=== PATIENT | male | born 1980 | race Caucasian/White ===

== ENCOUNTER 2017-12-01 16:54 | Observation (INO) | payer BC ==
[2017-12-01] MEDS ORDERED: Sodium Chloride 0.9% 10 ML Syringe FLUSH PRN ×2 (18:15→20:13)
[2017-12-01] MEDS ORDERED: Metoclopramide 10 MG/2 ML SDV IVPUSH ONE (18:15)
--- NOTE | 2017-12-01 18:18 | EDM.PDOC ---
ED HPI GENERAL MEDICAL PROBLEM - General Chief Complaint: Gastrointestinal Problem Stated Complaint: ABDOMINAL PAIN LOWER R SIDE Time Seen by Provider: 12/01/17 18:07 Source of Information: Reports: Patient History Limitations: Reports: No Limitations - History of Present Illness INITIAL COMMENTS - FREE TEXT/NARRATIVE: 37-year-old male presents for evaluation and treatment of right lower quadrant abdominal pain. Patient reports that he has not been feeling well for the last week. He states that for the last day his symptoms have significantly worsened. States the pain over the course last week has been intermittent. Today at the pain has been constant. Reports pain in the right lower quadrant. Reports associated symptoms of nausea. No fevers or vomiting. He also states that he had 2 bloody stools on Monday. He had a black tarry stool on Monday. Today he had about 3 bowel movements which were looser but no melena or hematochezia present. He denies any rectal pain. Denies any dysuria or hematuria. No previous surgeries to his abdomen. No recent travel. No recent antibiotic use. Duration: Week(s): (1) Location: Reports: Abdomen (RLQ) Right Abdomen Pain Score (Numeric/FACES): 5 - Related Data Allergies Allergy/AdvReac Type Severity Reaction Status Date / Time No Known Allergies Allergy Verified 12/02/17 02:45 Home Meds: Home Meds . [No Known Home Meds] 12/01/17 [History] Past Medical History Musculoskeletal History: Reports: Fracture Other Musculoskeletal History: left hand, right elbow left knee - Past Surgical History HEENT Surgical History: Reports: Naso-Sinus Surgery, Tonsillectomy Social & Family History - Family History Family Medical History: Noncontributory - Tobacco Use Smoking Status *Q: Never Smoker - Caffeine Use Caffeine Use: Reports: Soda - Recreational Drug Use Recreational Drug Use: No ED ROS GENERAL - Review of Systems Review Of Systems: See Below Constitutional: Reports: Decreased Appetite. Denies: Fever GI/Abdominal: Reports: Abdominal Pain (RLQ), Hematochezia, Melena, Nausea. Denies: Vomiting : Reports: No Symptoms ED EXAM, GI/ABD - Physical Exam Exam: See Below Exam Limited By: No Limitations General Appearance: Alert, WD/WN, No Apparent Distress, Obese Respiratory/Chest: No Respiratory Distress, Lungs Clear, Normal Breath Sounds Cardiovascular: Normal Peripheral Pulses, Regular Rate, Rhythm, No Murmur GI/Abdominal Exam: Normal Bowel Sounds, Soft, Guarding, Rebound, Tender (RLQ), Other (pain at [place]urn[place] point: + obturator sign, minimal discomfort with heel percussion) Neurological: Alert, Oriented, Normal Cognition Psychiatric: Normal Affect, Normal Mood Skin Exam: Warm, Dry, Normal Color Course - Vital Signs Last Recorded V/S: Last Vital Signs Temp 36.6 C 12/02/17 08:17 Pulse 78 12/02/17 10:43 Resp 20 12/02/17 08:17 BP 132/76 12/02/17 08:31 Pulse Ox 93 L 12/02/17 10:43 - Orders/Labs/Meds Orders: Active Orders 24 hr Category Date Time Status Communication Order [RC] ROUTINE Care 12/01/17 23:16 Active Cooling Warming Measures [RC] ASDIRECTED Care 12/01/17 23:16 Active Notify Provider [RC] ASDIRECTED Care 12/01/17 23:16 Active Oxygen Therapy [RC] ASDIRECTED Care 12/01/17 23:16 Active Pulse Oximetry [RC] ASDIRECTED Care 12/01/17 23:16 Active Labs: Laboratory Tests 12/01/17 12/01/17 12/01/17 Range/Units 18:30 18:30 18:34 WBC 9.92 H (4.23-9.07) K/mm3 RBC 5.96 (4.63-6.08) M/mm3 Hgb 17.5 (13.7-17.5) gm/L Hct 50.6 (40.1-51.0) % MCV 84.9 (79.0-92.2) fl MCH 29.4 (25.7-32.2) pg MCHC 34.6 (32.2-35.5) g/dl RDW Std Deviation 41.5 (35.1-43.9) fL Plt Count 254 (163-337) K/mm3 MPV 8.7 L (9.4-12.3) fl Neutrophils % (Manual) 71 H (40-60) % Band Neutrophils % 0 (0-10) % Lymphocytes % (Manual) 25 (20-40) % Atypical Lymphs % 0 % Monocytes % (Manual) 0 L (2-10) % Eosinophils % (Manual) 3 (0.8-7.0) % Basophils % (Manual) 1 (0.2-1.2) Platelet Estimate Adequate Plt Morphology Comment Normal RBC Morph Comment Normal Sodium 137 (136-145) mEq/L Potassium 4.0 (3.5-5.1) mEq/L Chloride 98 (98-107) mEq/L Carbon Dioxide 30 (21-32) mEq/L Anion Gap 13.0 (5-15) BUN 12 (7-18) mg/dL Creatinine 1.1 (0.7-1.3) mg/dL Est Cr Clr Drug Dosing 112.03 mL/min Estimated GFR (MDRD) > 60 (>60) mL/min BUN/Creatinine Ratio 10.9 L (14-18) Glucose 95 (74-106) mg/dL Calcium 9.6 (8.5-10.1) mg/dL Total Bilirubin 0.7 (0.2-1.0) mg/dL AST 29 (15-37) U/L ALT 73 H (16-63) U/L Alkaline Phosphatase 76 (46-116) U/L C-Reactive Protein 2.0 H* (<1.0) mg/dL Total Protein 7.9 (6.4-8.2) g/dl Albumin 4.2 (3.4-5.0) g/dl Globulin 3.7 gm/dL Albumin/Globulin Ratio 1.1 (1-2) Urine Color Light yellow (Yellow) Urine Appearance Clear (Clear) Urine pH 7.0 (5.0-8.0) Ur Specific [place] 1.015 (1.005-1.030) Urine Protein Negative (Negative) Urine Glucose (UA) Negative (Negative) Urine Ketones Negative (Negative) Urine Occult Blood Negative (Negative) Urine Nitrite Negative (Negative) Urine Bilirubin Negative (Negative) Urine Urobilinogen 0.2 (0.2-1.0) Ur Leukocyte Esterase Negative (Negative) Urine RBC Not seen (0-5) /hpf Urine WBC 0-5 (0-5) /hpf Ur Epithelial Cells 0-5 (0-5) /hpf Urine Bacteria Not seen (FEW) /hpf Urine Mucus Not seen (FEW) /hpf Meds: Medications Discontinued Medications Generic Name Dose Route Start Last Admin Trade Name Freq PRN Reason Stop Dose Admin Hydrocodone Bitart/Acetaminophen 1 tab 12/02/17 00:13 03/03/18 05:13 Schuyler 325-5 Mg PO 1 tab Q6H PRN Administration Pain (severe 7-10) Bupivacaine HCl Confirm 12/01/17 21:08 Marcaine 0.5% Administered 12/01/17 21:09 Dose 30 ml .ROUTE .STK-MED ONE Diatrizoate Meglum/Diatrizoate Sod 120 ml 12/01/17 20:13 12/01/17 20:23 Gastrografin 37% PO 12/01/17 20:14 90 ml ONETIME ONE Administration Fentanyl Confirm 12/01/17 21:25 Sublimaze Administered 12/01/17 21:26 Dose 250 mcg .ROUTE .STK-MED ONE Fentanyl Confirm 12/01/17 23:15 Sublimaze Administered 12/01/17 23:16 Dose 100 mcg .ROUTE .STK-MED ONE Fentanyl 50 mcg 12/01/17 23:16 Sublimaze IVPUSH Q5M PRN PAIN Fentanyl Confirm 12/01/17 23:30 12/02/17 00:02 Sublimaze Administered 12/01/17 23:31 50 mcg Dose Administration 100 mcg .ROUTE .STK-MED ONE Fentanyl Confirm 12/01/17 23:53 12/02/17 04:07 Sublimaze Administered 12/01/17 23:54 Not Given Dose 100 mcg .ROUTE .STK-MED ONE Hydromorphone HCl Confirm 12/01/17 22:29 Dilaudid Administered 12/01/17 22:30 Dose 1 mg .ROUTE .STK-MED ONE Hydromorphone HCl 1 mg 12/01/17 23:16 Dilaudid IVPUSH ONETIME PRN Pain Lactated Ringer's 1,000 mls @ 999 mls/hr 12/01/17 18:15 12/01/17 23:47 Ringers, Lactated IV 12/01/17 19:15 999 mls/hr .BOLUS ONE Administration Ertapenem 1 gm/ Sodium 100 mls @ 100 mls/hr 12/01/17 20:48 Chloride IV 12/01/17 21:47 ONETIME ONE Ertapenem 1 gm/ Sodium 100 mls @ 200 mls/hr 12/01/17 21:04 12/01/17 21:12 Chloride IV 12/01/17 21:33 200 mls/hr ONETIME ONE Administration Lidocaine HCl Confirm 12/01/17 21:25 Xylocaine-Mpf 1% Administered 12/01/17 21:26 Dose 4 mls @ as directed .ROUTE .STK-MED ONE Lactated Ringer's Confirm 12/01/17 22:33 Ringers, Lactated Administered 12/01/17 22:34 Dose 1,000 mls @ as directed .ROUTE .STK-MED ONE Lactated Ringer's 1,000 mls @ 75 mls/hr 12/02/17 00:30 Ringers, Lactated IV ASDIRECTED SERG Ibuprofen 600 mg 12/02/17 00:14 Motrin PO Q6H PRN Pain (mild 1-3) Iopamidol 150 ml 12/01/17 20:13 12/01/17 20:24 Isovue-300 (61%) IVPUSH 12/01/17 20:14 125 ml ONETIME ONE Administration Lidocaine HCl Confirm 12/01/17 21:47 12/01/17 22:02 Xylocaine 1% Administered 12/01/17 21:48 18 ml Dose Administration 50 ml .ROUTE .STK-MED ONE Metoclopramide HCl 5 mg 12/01/17 18:15 12/01/17 18:42 Reglan IVPUSH 12/01/17 18:16 5 mg ONETIME ONE Administration Midazolam HCl Confirm 12/01/17 21:25 Versed 1 Mg/Ml Administered 12/01/17 21:26 Dose 2 mg .ROUTE .STK-MED ONE Ondansetron HCl Confirm 12/01/17 21:24 Zofran Administered 12/01/17 21:25 Dose 4 mg .ROUTE .STK-MED ONE Propofol Confirm 12/01/17 21:24 Diprivan 20 Ml Administered 12/01/17 21:25 Dose 200 mg .ROUTE .STK-MED ONE Rocuronium [place] Confirm 12/01/17 21:24 Zemuron Administered 12/01/17 21:25 Dose 50 mg .ROUTE .STK-MED ONE Sodium Chloride 10 ml 12/01/17 18:15 12/01/17 18:43 Saline Flush FLUSH 10 ml ASDIRECTED PRN Administration Keep Vein Open Sodium Chloride 10 ml 12/01/17 20:13 12/01/17 20:24 Saline Flush FLUSH 10 ml ONETIME PRN Administration IV FLUSH - Radiology Interpretation Free Text/Narrative:: CT of the abdomen and pelvis impression per [facility]: Findings consistent with acute appendicitis. No free air. No evidence of abscess. - Re-Assessments/Exams Free Text/Narrative Re-Assessment/Exam: 12/01/17 20:38 I reviewed the labs and imaging with the patient. He has declined pain medication since coming to the ER. He does have acute appendicitis. Discussed case with Dr. Herring, surgeon evaluation specialist. She asked we give invanz 1 g IV. She will come to the ER and evaluate him . plan to take him to the OR. Departure - Departure Time of Disposition: 20:50 Disposition: DC/Tfer to [facility] Access [facility] Condition: Fair Clinical Impression: Appendicitis, acute Qualifiers: Acute appendicitis type: unspecified acute appendicitis type Qualified Code(s) : K35.80 - Unspecified acute appendicitis - Discharge Information
[2017-12-01] MEDS: Lactated Ringers 1,000 ML IV ONE ×2 (18:42→23:47)
[2017-12-01] MEDS ORDERED: Diatrizoate Meglumine/Diatrizoate Sodium 37% 120 ML Bottle PO ONE (20:13)
[2017-12-01] MEDS ORDERED: Iopamidol 612 MG/ML 150 ML Bottle IVPUSH ONE (20:13)
[2017-12-01] MEDS ORDERED: Ertapenem 1 GM in Sodium Chloride 0.9% 100 ML IV ONE ×2 (20:48→21:04)
[2017-12-01] MEDS ORDERED: Bupivacaine 0.5% 30 ML SDV ONE (21:08)
[2017-12-01] MEDS ORDERED: Rocuronium 50 MG/5 ML Vial ONE (21:24)
[2017-12-01] MEDS ORDERED: Propofol 200 MG/20 ML SDV ONE (21:24)
[2017-12-01] MEDS ORDERED: Ondansetron 4 MG/2 ML SDV ONE (21:24)
[2017-12-01] MEDS ORDERED: Midazolam 1 MG/ML 2 ML SDV ONE (21:25)
[2017-12-01] MEDS ORDERED: Lidocaine 1% 4 ML ONE (21:25)
[2017-12-01] MEDS ORDERED: fentaNYL 250 MCG/5 ML SDV ONE (21:25)
--- NOTE | 2017-12-01 21:32 | PCM.PREANE ---
Preanesthetic Assessment - Anesthesia/Transfusion/Family Hx Anesthesia History: Prior Anesthesia Without Reaction Family History of Anesthesia Reaction: No Transfusion History: No Prior Transfusion(s) - Review of Systems General: No Symptoms Pulmonary: No Symptoms Cardiovascular: No Symptoms Gastrointestinal: Abdominal Pain Neurological: No Symptoms Other: Reports: None - Physical Assessment NPO Status Date: 12/01/17 NPO Status Time: 12:00 Pulse: 93 O2 Sat by Pulse Oximetry: 93 Respiratory Rate: 18 Blood Pressure: 149/95 Temperature: 36.2 C Vital Signs: Last Vital Signs Temp 36.2 C 12/01/17 17:26 Pulse 93 12/01/17 17:26 Resp 18 12/01/17 17:26 BP 149/95 H 12/01/17 17:26 Pulse Ox 93 L 12/01/17 17:26 Height: 1.91 m Weight: 136.078 kg ASA Class: 2E Mental Status: Alert & Oriented x3 Airway Class: Mallampati = 1 Dentition: Reports: Normal Dentition Thyro-Mental Finger Breadths: 3 Mouth Opening Finger Breadths: 3 ROM/Head Extension: Full Lungs: Clear to Auscultation, Normal Respiratory Effort Cardiovascular: Regular Rate, Regular Rhythm, No Murmurs - Lab Values: Laboratory Last Values WBC 9.92 K/mm3 (4.23-9.07) H 12/01/17 18:30 RBC 5.96 M/mm3 (4.63-6.08) 12/01/17 18:30 Hgb 17.5 gm/L (13.7-17.5) 12/01/17 18:30 Hct 50.6 % (40.1-51.0) 12/01/17 18:30 MCV 84.9 fl (79.0-92.2) 12/01/17 18:30 MCH 29.4 pg (25.7-32.2) 12/01/17 18:30 MCHC 34.6 g/dl (32.2-35.5) 12/01/17 18:30 RDW Std Deviation 41.5 fL (35.1-43.9) 12/01/17 18:30 Plt Count 254 K/mm3 (163-337) 12/01/17 18:30 MPV 8.7 fl (9.4-12.3) L 12/01/17 18:30 Neutrophils % (Manual) 71 % (40-60) H 12/01/17 18:30 Band Neutrophils % 0 % (0-10) 12/01/17 18:30 Lymphocytes % (Manual) 25 % (20-40) 12/01/17 18:30 Atypical Lymphs % 0 % 12/01/17 18:30 Monocytes % (Manual) 0 % (2-10) L 12/01/17 18:30 Eosinophils % (Manual) 3 % (0.8-7.0) 12/01/17 18:30 Basophils % (Manual) 1 (0.2-1.2) 12/01/17 18:30 Platelet Estimate Adequate 12/01/17 18:30 Plt Morphology Comment Normal 12/01/17 18:30 RBC Morph Comment Normal 12/01/17 18:30 Sodium 137 mEq/L (136-145) 12/01/17 18:30 Potassium 4.0 mEq/L (3.5-5.1) 12/01/17 18:30 Chloride 98 mEq/L (98-107) 12/01/17 18:30 Carbon Dioxide 30 mEq/L (21-32) 12/01/17 18:30 Anion Gap 13.0 (5-15) 12/01/17 18:30 BUN 12 mg/dL (7-18) 12/01/17 18:30 Creatinine 1.1 mg/dL (0.7-1.3) 12/01/17 18:30 Est Cr Clr Drug Dosing 112.03 mL/min 12/01/17 18:30 Estimated GFR (MDRD) > 60 mL/min (>60) 12/01/17 18:30 BUN/Creatinine Ratio 10.9 (14-18) L 12/01/17 18:30 Glucose 95 mg/dL (74-106) 12/01/17 18:30 Calcium 9.6 mg/dL (8.5-10.1) 12/01/17 18:30 Total Bilirubin 0.7 mg/dL (0.2-1.0) 12/01/17 18:30 AST 29 U/L (15-37) 12/01/17 18:30 ALT 73 U/L (16-63) H 12/01/17 18:30 Alkaline Phosphatase 76 U/L (46-116) 12/01/17 18:30 C-Reactive Protein 2.0 mg/dL (<1.0) H* 12/01/17 18:30 Total Protein 7.9 g/dl (6.4-8.2) 12/01/17 18:30 Albumin 4.2 g/dl (3.4-5.0) 12/01/17 18:30 Globulin 3.7 gm/dL 12/01/17 18:30 Albumin/Globulin Ratio 1.1 (1-2) 12/01/17 18:30 Urine Color Light yellow (Yellow) 12/01/17 18:34 Urine Appearance Clear (Clear) 12/01/17 18:34 Urine pH 7.0 (5.0-8.0) 12/01/17 18:34 Ur Specific [place] 1.015 (1.005-1.030) 12/01/17 18:34 Urine Protein Negative (Negative) 12/01/17 18:34 Urine Glucose (UA) Negative (Negative) 12/01/17 18:34 Urine Ketones Negative (Negative) 12/01/17 18:34 Urine Occult Blood Negative (Negative) 12/01/17 18:34 Urine Nitrite Negative (Negative) 12/01/17 18:34 Urine Bilirubin Negative (Negative) 12/01/17 18:34 Urine Urobilinogen 0.2 (0.2-1.0) 12/01/17 18:34 Ur Leukocyte Esterase Negative (Negative) 12/01/17 18:34 Urine RBC Not seen /hpf (0-5) 12/01/17 18:34 Urine WBC 0-5 /hpf (0-5) 12/01/17 18:34 Ur Epithelial Cells 0-5 /hpf (0-5) 12/01/17 18:34 Urine Bacteria Not seen /hpf (FEW) 12/01/17 18:34 Urine Mucus Not seen /hpf (FEW) 12/01/17 18:34 - Allergies Allergies/Adverse Reactions: Allergies Allergy/AdvReac Type Severity Reaction Status Date / Time No Known Allergies Allergy Verified 12/01/17 17:30 - Blood Blood Available: No Product(s) Available: None - Anesthesia Plan Pre-Op Medication Ordered: None - Acknowledgements Anesthesia Type Planned: General Anesthesia Pt an Appropriate Candidate for the Planned Anesthesia: Yes Alternatives and Risks of Anesthesia Discussed w Pt/Guardian: Yes Pt/Guardian Understands and Agrees with Anesthesia Plan: Yes PreAnesthesia Questionnaire Gastrointestinal History: Reports: GERD Musculoskeletal History: Reports: Fracture Other Musculoskeletal History: left hand, right elbow left knee - Past Surgical History HEENT Surgical History: Reports: Naso-Sinus Surgery, Tonsillectomy - SUBSTANCE USE Smoking Status *Q: Never Smoker Tobacco Use Within Last Twelve Months: No Second Hand Smoke Exposure: No Days Per Week of Alcohol Use: 1 Number of Drinks Per Day: 1 Total Drinks Per Week: 1 Recreational Drug Use History: No - HOME MEDS Home Medications: Home Meds . [No Known Home Meds] 12/01/17 [History] - CURRENT (IN HOUSE) MEDS Current Meds: Current Medications Ertapenem 1 gm/ Sodium (Chloride) 100 mls @ 200 mls/hr IV ONETIME ONE Stop: 12/01/17 21:33 Last Admin: 12/01/17 21:12 Dose: 200 mls/hr Sodium Chloride (Saline Flush) 10 ml FLUSH ASDIRECTED PRN PRN Reason: Keep Vein Open Last Admin: 12/01/17 18:43 Dose: 10 ml Sodium Chloride (Saline Flush) 10 ml FLUSH ONETIME PRN PRN Reason: IV FLUSH Last Admin: 12/01/17 20:24 Dose: 10 ml Discontinued Medications Bupivacaine HCl (Marcaine 0.5%) Confirm Administered Dose 30 ml .ROUTE .STK-MED ONE Stop: 12/01/17 21:09 Diatrizoate Meglum/Diatrizoate Sod (Gastrografin 37%) 120 ml PO ONETIME ONE Stop: 12/01/17 20:14 Last Admin: 12/01/17 20:23 Dose: 90 ml Fentanyl (Sublimaze) Confirm Administered Dose 250 mcg .ROUTE .STK-MED ONE Stop: 12/01/17 21:26 Lactated Ringer's (Ringers, Lactated) 1,000 mls @ 999 mls/hr IV .BOLUS ONE Stop: 12/01/17 19:15 Last Admin: 12/01/17 18:42 Dose: 999 mls/hr Ertapenem 1 gm/ Sodium (Chloride) 100 mls @ 100 mls/hr IV ONETIME ONE Stop: 12/01/17 21:47 Lidocaine HCl (Xylocaine-Mpf 1%) Confirm Administered Dose 4 mls @ as directed .ROUTE .STK-MED ONE Stop: 12/01/17 21:26 Iopamidol (Isovue-300 (61%)) 150 ml IVPUSH ONETIME ONE Stop: 12/01/17 20:14 Last Admin: 12/01/17 20:24 Dose: 125 ml Metoclopramide HCl (Reglan) 5 mg IVPUSH ONETIME ONE Stop: 12/01/17 18:16 Last Admin: 12/01/17 18:42 Dose: 5 mg Midazolam HCl (Versed 1 Mg/Ml) Confirm Administered Dose 2 mg .ROUTE .STK-MED ONE Stop: 12/01/17 21:26 Ondansetron HCl (Zofran) Confirm Administered Dose 4 mg .ROUTE .STK-MED ONE Stop: 12/01/17 21:25 Propofol (Diprivan 20 Ml) Confirm Administered Dose 200 mg .ROUTE .STK-MED ONE Stop: 12/01/17 21:25 Rocuronium [place] (Zemuron) Confirm Administered Dose 50 mg .ROUTE .STK-MED ONE Stop: 12/01/17 21:25
[2017-12-01] MEDS ORDERED: Lidocaine 1% 50 ML MDV ONE (21:47)
[2017-12-01] MEDS ORDERED: HYDROmorphone 1 MG/ML Syringe ONE (22:29)
[2017-12-01] MEDS ORDERED: Lactated Ringers 1,000 ML ONE (22:33)
[2017-12-01] MEDS ORDERED: fentaNYL 100 MCG/2 ML SDV ONE ×2 (23:15→23:53)
[2017-12-01] MEDS ORDERED: fentaNYL 250 MCG/5 ML SDV IVPUSH PRN (23:16)
[2017-12-01] MEDS ORDERED: HYDROmorphone 1 MG/ML Syringe IVPUSH PRN (23:16)
--- NOTE | 2017-12-01 23:18 | PCM.POSTAN ---
POST ANESTHESIA ASSESSMENT - MENTAL STATUS Mental Status: Alert, Oriented - VITAL SIGNS Pulse Rate: 101 SaO2: 97 Resp Rate: 11 Blood Pressure: 111/89 Temperature: 37.3 C - RESPIRATORY Respiratory Status: Respiratory Rate WNL, Airway Patent, O2 Saturation Stable, Supplemental Oxygen - CARDIOVASCULAR CV Status: Pulse Rate WNL, Blood Pressure Stable - GASTROINTESTINAL GI Status: No Symptoms - PAIN Pain Score: 0 - POST OP HYDRATION Hydration Status: Adequate & Stable - OBSERVATIONS Free Text/Narrative:: no anesthesia complications noted
[2017-12-01] MEDS: fentaNYL 100 MCG/2 ML SDV ONE (23:38)
[2017-12-02] MEDS: fentaNYL 100 MCG/2 ML SDV ONE (00:02)
[2017-12-02] MEDS ORDERED: Acetaminophen/HYDROcodone 325-5 MG Tab PO PRN (00:13)
[2017-12-02] MEDS ORDERED: Ibuprofen 600 MG Tab PO PRN (00:14)
[2017-12-02] MEDS ORDERED: Lactated Ringers 1,000 ML IV SCH (00:30)
--- NOTE | 2017-12-02 06:54 | OR ---
DATE OF OPERATION: 12/01/2017 SURGEON: Deysi Herring MD PREOPERATIVE DIAGNOSIS: Acute appendicitis. POSTOPERATIVE DIAGNOSIS: Acute suppurative appendicitis. OPERATION PERFORMED: Laparoscopic appendectomy. ANESTHESIA: General with intubation. ESTIMATED BLOOD LOSS: Less than 25 mL. REPLACEMENT: Crystalloid. BRIEF HISTORY: Mello Melgar is a very pleasant 37-year-old male, who arrived here with right lower quadrant pain. CT scan confirmed acute appendicitis. I had the opportunity to discuss the risks and benefits of the procedure and he agreed to proceed. DESCRIPTION OF PROCEDURE: The patient was taken to the operating room, time-out was performed. At this time, the patient was intubated with general anesthesia. The abdomen was prepped and draped in usual fashion after I shaved just a small amount in the infraumbilical area and the suprapubic area. At this point in time, I was able to make small transverse incision in the infraumbilical area. Dissection was done of the skin and subcutaneous tissue until identified the fascia. I grasped it between 2 sterile hemostats and elevated superiorly and made a jaycob in the fascia. I advanced the Veress needle. CO2 was insufflated. I then advanced 5 mm port. The camera confirmed good placement. It should be noted that this is a very thick ernesto, not obese, but just a very big ernesto. I could see I placed a 5 mm port in the right upper quadrant and then was able to advance the port easily. Clearly, the patient had a very large acute appendicitis. A suprapubic 12 mm port was then advanced. At this point, I was able to identify the base of the appendix. Interestingly enough, the tip is very thickened, and we are going to have to make sure we check this to make sure there are no signs of any sort of a little tumor in the area. I made a window at the base of the appendix and then fired the stapling device. I took down the mesoappendix using hemoclips for hemostasis. I then placed an enlarged appendix into the bag and brought it out through the suprapubic incision. I then irrigated with the small amount of saline to reassess the area and could see that I achieved good hemostasis. The suprapubic port site did not have any active bleeding. Prior to removing the right upper quadrant port, I did place some omentum over the stump. Staple line looked good. The 5 mm port was removed and no bleeding was noted at the site. A 0-PDS was used to reapproximate the 12 mm and the infraumbilical 5 mm ports with [id number]. I done the subcuticular closure with 4-0 Monocryl. Mastisol and Steri-Strips applied and sterile dressing applied. The counts were correct. He tolerated the procedure well and moved back to recovery room. Of note, the patient had told me that he had some bloody stools and it is also the recommendation that about 6 weeks from now he should have a colonoscopy. I discussed this with his . DELORIS /[id number]
--- NOTE | 2017-12-02 14:30 | CT ---
CT abdomen and pelvis Technique: Multiple axial sections were obtained from above the dome of the diaphragm inferiorly through the pubic symphysis. Intravenous and oral contrast was utilized. Delayed images were obtained through the bladder. Comparison: No prior CT abdomen or pelvis exam. Findings: Appendix shows mild inflammatory change compatible with mild appendicitis. Visualized lung bases show nothing acute. Liver shows no focal parenchymal abnormality. Spleen appears within normal limits. Adrenal glands show no nodule. Pancreas is within normal limits. Kidneys show symmetric contrast enhancement. Cyst noted within the left kidney measuring 1.4 cm in size. No additional abnormality is seen within the kidneys. Aorta shows no aneurysmal dilatation. No retroperitoneal adenopathy is seen. No pelvic mass or adenopathy is seen. No free fluid is seen. Delayed images show contrast within the distal ureters and within the bladder. Bone window settings were reviewed which appear within normal limits for the patient's age. Impression: 1. Findings compatible with mild appendicitis. 2. Other incidental findings as noted above. Diagnostic code #5 I agree with preliminary report issued by [facility] ([facility] report finalized on 12/01/17, 9:37 PM Central Time)
--- NOTE | 2017-12-03 09:15 | DISCH ---
ADMISSION DATE: 12/02/2017 DISCHARGE DATE: 12/02/2017 PRIMARY DIAGNOSIS: Acute appendicitis - suppurative. SECONDARY DIAGNOSIS: History of rectal bleeding. PROCEDURE PERFORMED: Laparoscopic appendectomy. COMPLICATIONS: None. BRIEF HISTORY: Mr. Mello Melgar is a very pleasant 37-year-old male who arrived here with right lower quadrant pain. The CT scan confirmed he had acute appendicitis. He was subsequently taken to the operating room where a successful removal was done laparoscopically. Of note, the appendix itself was very thickened at the tip and was suppurative, but not perforated. Postoperatively, he did well. The wounds today are clean and dry. DISCHARGE PLAN: The discharge plan will be as follows: 1. Discharge diet: Regular. 2. Discharge activity: No heavy lifting for the next week and he should refrain from work for 1 week. A note has been written to his boss that he should return to work on 12/11/2017, with no restrictions. He may shower with the dressing off. He should come back to see Dr. Mejía next Monday for 2 reasons: 1. a. For pathology report. b. For wound evaluation. As far as the history of some rectal bleeding, I have discussed with the patient that I would highly recommend that he undergo a colonoscopy. This should be done for not more than 6 weeks because of the recent surgery that he had. He and his family both understand and will schedule that at a later date. On the day of discharge, he is ambulating and tolerating a regular diet and he is doing well. All questions were answered and they seemed pleased. DISCHARGE MEDICATIONS: As far as discharge medications, he will utilize [id number] medications for pain. This would be Motrin or ibuprofen. If the pain is more than that, he should come back. FINAL DIAGNOSIS: DIET: ACTIVITY: FOLLOW-UP: CONDITION ON DISCHARGE: DELORIS /[id number]
--- NOTE | 2017-12-04 07:30 | HP ---
DATE OF ADMISSION: 12/01/2017 CHIEF COMPLAINT: Right lower quadrant pain. HISTORY OF PRESENT ILLNESS: Mello Melgar is a very pleasant 37-year-old man, who has kind of an odd kind of history. He stated that about a week ago, he just started having some vague lower abdominal pain. He had no associated fever or chills, but simultaneously, he stated that he started feeling like he had a back pain. He has had chronic issues with his back, and he stated that over the course of the week, he was putting ice packs on it. He had also noticed that he had an episode of bloody stool. There was bright blood noticed in his stool. He also said he has had this in the past too. Having said that, over the course of the last 24 hours, things changed, and so he has had now developed nausea. No fevers or chills, but persistent pain and localized to the right lower quadrant. This was new, and that is when he sought medical attention. He has not eaten since noon. He was subsequently seen here in the emergency department, and noticed that his WBC was mildly elevated at 9.9; his H and H were 17 and 50. His electrolytes were normal. Of note, he had a CT scan of the abdomen and pelvis consistent with acute appendicitis without perforation. PAST MEDICAL HISTORY: Allergies: No known allergies. CURRENT MEDICATIONS: No medications. SOCIAL HISTORY: The patient is and has two children alive and well. His is at his bedside. FAMILY HISTORY: He had grandfather who had multiple myeloma, and he had grandmother who had breast cancer. His father of a gunshot wound, self-inflicted, and his mother is alive and well. He has one sister. He does not smoke. He has occasional alcohol. He works with [employer]. PAST SURGICAL HISTORY: 1. At age 8, he had a "tumor" removed on his scrotum on the left, which was not cancer. 2. He has had open surgery of his wrist in his left hand. 3. He has also had T and A and as well as nasal septal surgery. He reports that after nasal septal surgery, there was some concern of his breathing, so he has had to stay overnight. With the other surgeries, he had no problems. REVIEW OF SYSTEMS: HEAD: No history of seizures or strokes. EYES: No history of blurred or double vision. ENDOCRINE: No history of thyroid, diabetes, or hepatitis. CARDIORESPIRATORY: No shortness of breath or cough. No cardiac arrhythmia or palpitations. GASTROINTESTINAL: No history of ulcers or kidney stones. No abdominal pain. See HPI. GENITOURINARY: No history of hematuria or dysuria. HEMATOLOGIC: He denies any history of deep venous thrombosis or bleeding dyscrasias. PHYSICAL EXAMINATION: GENERAL: Alert and oriented. VITAL SIGNS: He was afebrile. NECK: Without mass. HEENT: Sclerae are white. LUNGS: Clear. HEART: Rhythm is regular. ABDOMEN: It is mildly obese in the right lower quadrant to deep palpation, there is guarding and tenderness. EXTREMITIES: Ankles free of edema. IMPRESSION AND PLAN: This patient indeed does have acute appendicitis. I discussed the risks and benefits of attempted laparoscopic appendectomy to include, but not limited to bleeding, infection, heart attack, , injury to structures not intended, and the need to perform an open procedure. We also discussed that he may need to have it drained, and it could even be a rupture of the suture line. I offered him a second opinion and he declined. Of note, we did discuss the option of having a non-operative approach using IV antibiotics. In this case, because of his history and the Clinicity, I would not recommend that, and he also wished to go ahead and proceed. All questions were answered. DELORIS /[id number]
--- NOTE | 2017-12-04 07:34 | PN ---
DATE OF SERVICE: 12/02/2017 SUBJECTIVE: Mr. Mello Melgar is a patient, who I removed acutely inflamed appendix last evening, actually he had suppurative appendicitis. During the course of the evening, he had a low grade fever, but this morning he is afebrile. He has already been eating. He states that he has a little soreness, but the pain that he came in, which has gone. OBJECTIVE: GENERAL: He is up and about. SKIN: The wounds are all cleaned. ABDOMEN: Soft. IMPRESSION AND PLAN: He was doing well status post removal of acutely inflamed appendix. He was given a dose of Invanz, which is for 24 hours. I do not think he needs any additional medications for that. I had discharge instructions to the patient and that has been dictated in my discharge summary. The patient and his family will go home, but will follow up here with Dr. Mejía on next Monday, sooner if there is any problem. I also provided them my personal cell phone number, so if they have any questions or problems they can call me directly. We also discussed issue as a fact that he had a bloody stools on several occasions. I really recommend that he should have a colonoscopy in about 4 to 6 weeks just first we have to let this heal and then he should proceed with an outpatient colonoscopy. DELORIS /[id number]
== END 2017-12-02 11:44 | disposition home or self-care (01) ==
LOC: JD.ED 16:54 → JD.SDS 21:11 → JD.MS 12-02 00:08
PROVIDERS: ADMIT Surgery; ATTEND Surgery
DX: K35.80 Unspecified acute appendicitis (principal)
CPT/HCPCS: 36415; 44970; 74177; 80053; 81001; 85025; 86140; 96361; 96365; 96375; 99285; A9270; J1170; J1335; J2250; J2405; J2765; J3010; J7030; J7050; J7120; Q9963; Q9967; 99284; J2704